=== PATIENT | female | born 1935 | race Caucasian/White ===

== ENCOUNTER 2017-03-26 11:07 | Inpatient (IN) | payer OTHER ==
[~2017-03-26] VITALS: Ht 162.6 cm; Wt 50.3 kg
[2017-03-26 12:35] LABS: EOSINOPHIL (%) 0.2 % (0-5); HEMATOCRIT 46.2 % (36.0-46.0); IMMATURE GRANULOCYTE (%) 0.4 % (0.0-0.7); LYMPHOCYTE COUNT 0.6 K/uL (1.0-2.8); MCH 29.4 PG (29.0-34.0); MCHC 32.5 G/DL (30.0-36.0); MCV 90.4 FL (83-99); MEAN PLAT.VOLUME 9.9 uM^3 (9.5-12.4); MONOCYTE (%) 5.6 % (3-12); MONOCYTE COUNT 0.5 K/uL (0-0.8); NEUTROPHIL (%) 86.4 % (45-76); PLATELET COUNT 276 K/uL (156-360); RBC DIS.WIDTH-CV 12.9 % (11.8-14.6); RBC DIS.WIDTH-SD 43.2 % (39-53); RED BLOOD COUNT 5.11 M/uL (3.80-5.20); WHITE BLOOD COUNT 8.1 K/uL (4.1-10.2)
[2017-03-26 12:45] LABS: CHLORIDE 103 mEq/L (99-109); POTASSIUM 4.2 mEq/L (3.7-5.4); SODIUM 137 mEq/L (136-147)
[2017-03-26 12:47] LABS: GLUCOSE 146 mg/dL (70-99)
[2017-03-26 12:49] LABS: ANION GAP 10 MEQ/L (2-14); TOTAL BILIRUBIN 0.7 mg/dL (0.0-1.0)
[2017-03-26 12:51] LABS: ALKALINE PHOSPHATASE 102 IU/L (3-129); GFR ESTIMATE (CALCULATED) > 59 mL/min/
[2017-03-26 12:52] LABS: UREA NITROGEN (BUN) 12 mg/dL (9-23)
[2017-03-26] MEDS ORDERED: ACETAMINOPHEN325 M1 PO (15:28)
[2017-03-26 16:28] LABS: TROP-I INTERPRETATION POSITIVE
[2017-03-26 16:29] LABS: TROPONIN-I 4.61 ng/mL (0.0-0.30)
[2017-03-26 17:03] LABS: INTER. NORMALIZED RATIO 1.2; PROTHROMBIN TIME 13.4 SEC (10.2-12.9)
[2017-03-26 17:07] LABS: HEMATOCRIT 39.5 % (36.0-46.0); MCH 29.9 PG (29.0-34.0); MCHC 32.9 G/DL (30.0-36.0); MCV 90.8 FL (83-99); MEAN PLAT.VOLUME 9.8 uM^3 (9.5-12.4); PLATELET COUNT 227 K/uL (156-360); RBC DIS.WIDTH-CV 13.1 % (11.8-14.6); RBC DIS.WIDTH-SD 43.5 % (39-53); RED BLOOD COUNT 4.35 M/uL (3.80-5.20)
[2017-03-26 17:49] LABS: ADD MIUA? YES; BILIRUBIN NEGATIVE; BLOOD SMALL; COLOR STRAW ((YELLOW)); GLUCOSE (STRIP) NEGATIVE; KETONES NEGATIVE; LEUKOCYTES NEGATIVE; NITRITE NEGATIVE; PROTEIN (STRIP) NEGATIVE; SPECIFIC GRAVITY 1.029 (1.000-1.030); UROBILINOGEN 0.2 MG/DL (0.2-1.0)
[2017-03-26 17:53] LABS: BACTERIA NONE SEEN /HPF; EPITHELIAL CELLS RARE /HPF; MUCUS NONE SEEN /LPF; RED BLOOD CELLS 0-5 /HPF (0-5); UCUL ADDED? NO; WHITE BLOOD CELLS 0-5 /HPF (0-5)
[2017-03-26 20:05] VITALS: BP 181/88
[2017-03-26 20:27] VITALS: BP 181/88
[2017-03-26 20:48] LABS: TROP-I INTERPRETATION POSITIVE
[2017-03-27 01:31] VITALS: BP 159/88
[2017-03-27 04:05] VITALS: BP 164/82
[2017-03-27 07:13] LABS: HEMATOCRIT 41.7 % (36.0-46.0); MCH 28.9 PG (29.0-34.0); MCHC 31.9 G/DL (30.0-36.0); MCV 90.7 FL (83-99); MEAN PLAT.VOLUME 9.9 uM^3 (9.5-12.4); PLATELET COUNT 243 K/uL (156-360); RBC DIS.WIDTH-CV 13.1 % (11.8-14.6); RBC DIS.WIDTH-SD 44.1 % (39-53); WHITE BLOOD COUNT 9.6 K/uL (4.1-10.2)
[2017-03-27 07:32] LABS: TROP-I INTERPRETATION POSITIVE; TROPONIN-I 2.07 ng/mL (0.0-0.30)
[2017-03-27 07:39] LABS: ANION GAP 7 MEQ/L (2-14); CHLORIDE 106 MEQ/L (99-109); GFR ESTIMATE (CALCULATED) > 59 mL/min/; GLUCOSE 160 mg/dL (70-99); POTASSIUM 4.1 MEQ/L (3.7-5.4); SAMPLE HEMOLYSIS CHECK 0; SAMPLE ICTERIC CHECK 0; SAMPLE LIPEMIA CHECK 0; SODIUM 138 MEQ/L (136-147); UREA NITROGEN (BUN) 8 mg/dL (9-23)
[2017-03-27 08:56] VITALS: BP 152/67
[2017-03-27 11:23] VITALS: BP 177/81
[2017-03-27 16:17] VITALS: BP 121/57
[2017-03-27 18:35] VITALS: BP 116/57
[2017-03-28] VITALS (7 sets, daily range): BP systolic 130–190; BP diastolic 60–85
[2017-03-28 05:26] LABS: MCH 29.3 PG (29.0-34.0); MCHC 31.8 G/DL (30.0-36.0); MCV 92.4 FL (83-99); MEAN PLAT.VOLUME 10.7 uM^3 (9.5-12.4); PLATELET COUNT 224 K/uL (156-360); RBC DIS.WIDTH-CV 13.2 % (11.8-14.6); RBC DIS.WIDTH-SD 45.3 % (39-53); RED BLOOD COUNT 4.33 M/uL (3.80-5.20); WHITE BLOOD COUNT 6.9 K/uL (4.1-10.2)
[2017-03-28 07:52] LABS: ANION GAP 9 MEQ/L (2-14); CHLORIDE 108 MEQ/L (99-109); GFR ESTIMATE (CALCULATED) > 59 mL/min/; MAGNESIUM 2.2 mg/dl (1.3-2.7); POTASSIUM 4.6 MEQ/L (3.7-5.4); SAMPLE HEMOLYSIS CHECK 0; SAMPLE ICTERIC CHECK 0; SAMPLE LIPEMIA CHECK 0; SODIUM 138 MEQ/L (136-147); UREA NITROGEN (BUN) 20 mg/dL (9-23)
[2017-03-28 07:54] LABS: GLUCOSE 113 mg/dL (70-99)
[2017-03-29 04:56] VITALS: BP 153/67
[2017-03-29 05:27] LABS: HEMATOCRIT 41.3 % (36.0-46.0); MCH 29.8 PG (29.0-34.0); MCHC 32.2 G/DL (30.0-36.0); MCV 92.6 FL (83-99); MEAN PLAT.VOLUME 10.6 uM^3 (9.5-12.4); PLATELET COUNT 259 K/uL (156-360); RBC DIS.WIDTH-CV 13.2 % (11.8-14.6); RED BLOOD COUNT 4.46 M/uL (3.80-5.20); WHITE BLOOD COUNT 5.2 K/uL (4.1-10.2)
[2017-03-29 06:01] LABS: ANION GAP 9 MEQ/L (2-14); CHLORIDE 105 MEQ/L (99-109); GFR ESTIMATE (CALCULATED) > 59 mL/min/; GLUCOSE 120 mg/dL (70-99); POTASSIUM 4.9 MEQ/L (3.7-5.4); SAMPLE HEMOLYSIS CHECK 0; SAMPLE ICTERIC CHECK 0; SAMPLE LIPEMIA CHECK 0; SODIUM 141 MEQ/L (136-147); UREA NITROGEN (BUN) 18 mg/dL (9-23)
[2017-03-29 07:41] VITALS: BP 167/74
[2017-03-29 13:28] VITALS: BP 121/58
[2017-03-29 14:48] VITALS: BP 138/65
[2017-03-29 19:49] VITALS: BP 165/70
[2017-03-29 23:21] VITALS: BP 161/72
[2017-03-30 03:35] VITALS: BP 136/63
[2017-03-30 08:03] VITALS: BP 145/65
[2017-03-30] MEDS ORDERED: ASPIR-LOW81 MG PO (08:27)
[2017-03-30] MEDS ORDERED: LOPRESSOR25 MG PO (08:28)
[2017-03-30] MEDS ORDERED: LISINOPRIL10 MG PO (08:28)
[2017-03-30] MEDS ORDERED: ADVAIR HFA120 INHALA IH (08:44)
[2017-03-30 11:37] VITALS: BP 145/67
[2017-03-30 16:35] VITALS: BP 140/67
== END 2017-03-30 18:05 | disposition home health service (06) | DRG 281 ==
LOC: EME 11:07 → EDOF 15:37 → ENRESERV 15:51 → CANRESERV 16:07 → 4EAST 16:38 → EDOF 16:38 → ENRESERV 16:39 → EDOF 16:40 → ENRESERV 17:00 → 4EAST 20:04
PROVIDERS: Emergency Medicine; Internal Medicine; Physician Assistant
DX: I21.4 Non-ST elevation (NSTEMI) myocardial infarction (principal); I16.0 Hypertensive urgency; I10 Essential (primary) hypertension; I42.9 Cardiomyopathy, unspecified; J44.9 Chronic obstructive pulmonary disease, unspecified; F03.90 Unspecified dementia, unspecified severity, without behavioral disturbance, psychotic disturbance, mood disturbance, and anxiety; F17.210 Nicotine dependence, cigarettes, uncomplicated; Z85.42 Personal history of malignant neoplasm of other parts of uterus; Z23 Encounter for immunization; Z91.14 Patient's other noncompliance with medication regimen
CPT/HCPCS: 70450; 71020; 71275; 78452; 80048; 80053; 81003; 83605; 83735; 84484; 85025; 85027; 85610; 85730; 87040; 90686; 93005; 93017; 93306; 94640; 94640 76; 94799; 97530 GO; 99281; 99285; A9500; J1644; J2543; J2785; J7030